=== PATIENT | male | born 1935 | race Caucasian/White ===

== ENCOUNTER 2017-07-07 08:26 | Day surgery (SDC) | payer MEDICARE ==
[~2017-07-07 08:26] MED LIST: AMIODARONE 150 MG INJ; AMIODARONE 900 MG INJ; DEXTROSE 5% WATER 500 ML BAG; DOPamine-D5W 1.6 MG/ML 250 ML; EPINEPHrine 0.1 MG/ML SYG; NA BICARBONATE 8.4% 50 ML SYG; NORepinephrine 8MG/250 ML BAG; PROPOFOL 200 MG INJ; SUCCINYLCHOLINE CHLORIDE 100 MG/5 ML SYG IV
[2017-07-07] MEDS ORDERED: IODIXANOL LOCM 100 ML BTL ×2 (09:24)
[2017-07-07] MEDS ORDERED: HEPARIN 1000 UNITS/ML 10 ML INJ ×2 (09:24)
[2017-07-07] MEDS ORDERED: LIDOCAINE 1% (MDV) 20 ML INJ ×2 (09:24)
[2017-07-07] MEDS ORDERED: NITROGLYCERIN (IC) 100 MCG/ML INJ ×2 (09:24)
[2017-07-07] MEDS ORDERED: VERAPAMIL 5 MG INJ ×2 (09:24)
[2017-07-07] MEDS ORDERED: NORepinephrine 8MG/250 ML (PMX 250 ML IV ×2 (09:30)
[2017-07-07 09:34] LABS: ADD MAN DIFF? NO
[2017-07-07 09:38] LABS: BASOPHILS % 0.2 % (0.0-2.0); EOSINOPHILS # 0.1 10^3/ul (0.0-0.5); EOSINOPHILS % 0.6 % (0.0-7.0); HEMATOCRIT 39.7 % (42.0-52.0); HEMOGLOBIN 12.6 g/dl (14.0-18.0); LYMPHOCYTES # 3.9 10^3/ul (0.8-2.9); LYMPHOCYTES % 36.2 % (15.0-51.0); MEAN CORPUSCULAR HEMOGLOBIN 33.4 pg (29.0-33.0); MEAN CORPUSCULAR HGB CONC 31.7 g/dl (32.0-37.0); MEAN CORPUSCULAR VOLUME 105.3 fl (82.0-101.0); MEAN PLATELET VOLUME 10.9 fl (7.4-10.4); MONOCYTE # 0.5 10^3/ul (0.3-0.9); MONOCYTES % 4.5 % (0.0-11.0); NEUTROPHIL # 6.1 10^3/ul (1.6-7.5); NEUTROPHILS % 57.1 % (39.0-77.0); NUCLEATED RED BLOOD CELLS% 0.3 /100WBC (0.0-0.0); PLATELET COUNT 183 10^3/UL (140-415); RED BLOOD COUNT 3.77 10^6/ul (4.70-6.10); RED CELL DISTRIBUTION WIDTH 16.6 % (11.5-14.5)
[2017-07-07 09:38] LABS: WHITE BLOOD COUNT 10.7 10^3/ul (4.8-10.8)
[2017-07-07] MEDS ORDERED: SOD CHLORIDE 0.9% 500 ML ×2 (09:41)
[2017-07-07] MEDS ORDERED: PROPOFOL 100 ML ×2 (09:41)
[2017-07-07 09:43] LABS: ALANINE AMINOTRANSFERASE 117 IU/L (13-69); ALBUMIN 4.1 g/dl (3.3-4.9); ALBUMIN/GLOBULIN RATIO 1.57; ALKALINE PHOSPHATASE 67 IU/L (42-121); ANION GAP 18 (8-16); ASPARTATE AMINO TRANSFERASE 92 IU/L (15-46); BLOOD UREA NITROGEN 56 mg/dl (7-20); CALCIUM 8.6 mg/dl (8.4-10.2); CARBON DIOXIDE 19 mmol/L (21-31); CHLORIDE 107 mmol/L (97-110); CREATININE 2.07 mg/dl (0.61-1.24); GLUCOSE 325 mg/dl (70-220); POTASSIUM 4.1 mmol/L (3.5-5.1); SODIUM 140 mmol/L (135-144); TOTAL PROTEIN 6.7 g/dl (6.1-8.1)
[2017-07-07 09:57] LABS: INR 1.03; PROTIME 13.6 Sec (11.9-14.9); PT RATIO 1.1; TROPONIN-I 0.249 ng/ml (0.00-0.12)
[2017-07-07 09:58] LABS: PARTIAL THROMBOPLASTIN TIME 34.4 Sec (25.0-35.0)
[2017-07-07 10:15] LABS: LACTIC ACID 4.5 mmol/L (0.5-2.0)
[2017-07-07] MEDS ORDERED: VASOPRESSIN 60 UNIT in DEXTROSE 5% 60 ML IV (10:30)
[2017-07-07 10:46] LABS: AADO2 Arterial 597.6 mmHg (7.0-24.0); Arterial Blood Gas Oxygen Sat 55.6 mmHG (95.0-100.0); Arterial COHb 1.4 % (0.0-3.0); Arterial Fraction of Oxyhgb 54.7 % (93.0-99.0); Arterial MetHb 0.3 % (0.0-1.5); Arterial Total Hemglobin 11.4 g/dl (12.0-18.0); Arterial pCO2 71.3 mmhg (35-45); Blood Gas Low PEEP Setting 0 cmH2O; MODE VENT - AC; Site A-Line
[2017-07-09] MEDS ORDERED: CANGRELOR TETRASODIUM/ NS 250 50 MG ×2 (16:27)
[2017-07-09] MEDS ORDERED: IOHEXOL 350MG/ML 50 ML BTL ×2 (16:27)
[2017-07-09] MEDS ORDERED: EPINEPHrine 0.1 MG/ML SYG ×2 (16:27)
[2017-07-09] MEDS ORDERED: IODIXANOL LOCM 100 ML BTL ×2 (16:27)
[2017-07-09] MEDS ORDERED: BIVALIRUDIN 250MG /NS 50 ML 100 ML IVPB ×2 (16:27)
[2017-07-09] MEDS ORDERED: NA BICARBONATE 8.4% 50 ML SYG ×2 (16:27)
[2017-07-09] MEDS ORDERED: AMIODARONE 150 MG INJ ×2 (16:27)
== END 2017-07-07 11:30 | disposition expired ==
LOC: SDS 09:45 → CCL 09:50 → E/R 08:26 → SDS 09:50
DX: I21.4 Non-ST elevation (NSTEMI) myocardial infarction (principal); I46.9 Cardiac arrest, cause unspecified; R57.0 Cardiogenic shock; N17.9 Acute kidney failure, unspecified; F17.200 Nicotine dependence, unspecified, uncomplicated; R06.02 Shortness of breath
CPT/HCPCS: 31500; 36600; 37248; 71045; 76937; 80053; 82803; 83605; 84484; 85025; 85610; 85730; 92950; 92953; 93005; 93458; 94002; 99285-25